=== PATIENT | male | born 2000 | race Caucasian/White ===

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

== ENCOUNTER 2021-07-19 15:59 | Emergency (ER) | payer OTHER ==
[~2021-07-19] VITALS: Ht 182 cm; Wt 76.2 kg
[~2021-07-19 15:59] MED LIST changes: +ALPR.25T PO; -ALPR0.254 PO; -RISP0.5T3; +RISP0.5T65
--- NOTE | 2021-07-19 16:41 | ED Cough/URI ---
General Chief Complaint: COVID19 Suspect/Confirmed Stated Complaint: FEVER/VOMITING Source: patient Exam Limitations: no limitations History of Present Illness Date Seen by Provider: Jul 19, 2021 Time Seen by Provider: 16:25 Initial Comments Here with report of continuing fever and nausea with occasional vomiting after eating. He is Covid positive since 07/09/2021. Overall has been doing better but then had fever last night and still has the stomach problems. He is on steroids and has been taken Tylenol and ibuprofen. He does have ondansetron at home but has not used it in a few days. Worried today because he had return of fever last night and he still has persistent fatigue with some shortness of air. Timing/Duration: changing over time, other (9 days) Severity/Quality: mild, dry cough Prior Episodes/Possible Cause: occasional episodes Modifying Factors: Worse With Activity; Improves With Rest Associated Symptoms: cough, shortness of breath Allergies and Home Medications Allergies Coded Allergies: No Known Drug Allergies (Unverified , 10/27/15) Patient Home Medication List Home Medication List Reviewed: Yes Review of Systems Review of Systems Constitutional: see HPI; No chills; fever, malaise (Fatigue) Respiratory: cough, short of breath (Mild) Gastrointestinal: abdominal pain (Epigastric), nausea, vomiting Genitourinary: no symptoms reported Musculoskeletal: no symptoms reported Skin: no symptoms reported Past Kahcvon-Wpmguu-Ugdlqa Hx Patient Social History Tobacco Use?: No Use of E-Cig and/or Vaping dev: Yes E-Cig or Vaping type used: Nicotine Use of E-Cig and/or Vaping Cedric: Current Everyday User Substance use?: No Alcohol Use?: No Pt feels they are or have been: No Immunizations Up To Date Tetanus Booster (TDap): Less than 5yrs PED Vaccines UTD: Yes Seasonal Allergies Seasonal Allergies: Yes Past Medical History Surgeries: Yes Adenoidectomy, Gallbladder, Tonsillectomy Respiratory: No Cardiac: No Neurological: No Headaches /Migraines Reproductive Disorders: No Gastrointestinal: Yes Gastroesophageal Reflux, Gall Bladder Disease, Irritable Bowel Musculoskeletal: No Endocrine: No Cancer: No Psychosocial: Yes (HX OF SUICIDAL THOUGHTS) Anxiety, Depression Integumentary: No Blood Disorders: No Adverse Reaction/Blood Tranf: No Family Medical History Reviewed Nursing Family Hx No Pertinent Family Hx Physical Exam Vital Signs - First Documented 07/19/21 16:30 Temp 36.7 Pulse 89 Resp 20 B/P (MAP) 125/82 (96) Pulse Ox 96 Capillary Refill : Height: 5'11.00" Weight: 176lbs. 4.0oz. [id number]; 27.00 BMI Method:Stated General Appearance: WD/WN, no apparent distress HEENT: PERRL/EOMI, pharyngeal erythema Neck: non-tender, full range of motion, supple, normal inspection Respiratory: lungs clear, normal breath sounds Cardiovascular: regular rate, rhythm, no murmur Gastrointestinal: normal bowel sounds, non tender, soft Extremities: non-tender, normal inspection Neurologic/Psychiatric: alert, oriented x 3 Skin: normal color, warm/dry Progress/Results/Core Measures Suspected Sepsis SIRS Temperature: Pulse: Respiratory Rate: Blood Pressure / Mean: Results/Orders My Orders Orders - ANTHONY MUNSON MD Chest 1 View, Ap/Pa Only (07/19/21 16:34) Vital Signs/I&O 07/19/21 16:30 Temp 36.7 Pulse 89 Resp 20 B/P (MAP) 125/82 (96) Pulse Ox 96 Capillary Refill : Progress Note : Progress Note Seen and evaluated. Initially difficult to determine what the main complaint was and then turns out his main concern is related to the stomach upset and difficulty with eating. He is mildly short of breath. He is day 8/9 of Covid infection. He is finishing his last dose of steroid tomorrow. We will go ahead and check chest x-ray. I did discuss with him about adding famotidine to his regimen to reduce acid since he has been on steroids and ibuprofen and I think this will help greatly. He was appreciative of that. If chest x-ray is okay, we will discharge home. Monitor patient. 1705: Chest x-ray does show few small infiltrates but otherwise no acute findings. Overall he is much better now. All questions answered. Discharged home with return precautions. Patient verbalized understanding instructions and agreement with plan. Diagnostic Imaging Diagonstic Imaging: Xray Plain Films/CT/US/NM/MRI: chest Comments Few patchy infiltrates bilateral. See full report for details. Reviewed: Reviewed by Me Departure Impression Primary Impression: COVID-19 virus infection Disposition: HOME, SELF-CARE Condition: Stable Departure-Patient Inst. Decision time for Depature: 16:39 Referrals: HECTOR JENKINS MD (PCP/Family) Primary Care Physician Patient Instructions: COVID-19 (DC) Add. Discharge Instructions: All discharge instructions reviewed with patient and/or family. Voiced understanding. Continue to drink plenty of fluids and get plenty of rest. Eat a light diet and then advance as tolerated. You may take [id number] Pepcid or the generic famotidine, 20 mg twice daily for the next 3 or 4 days and then daily thereafter for the next week or 2 to reduce stomach upset. You may stop after that. Continue Tylenol first for fever or pain and then use ibuprofen only for breakthrough symptoms of fever or pain. Follow with your doctor in a few days for recheck as needed. Return for worse pain, fever, vomiting, weakness, breathing problems or other concerns as needed. ANTHONY MUNSON MD Jul 19, 2021 16:41
--- NOTE | 2021-07-19 17:03 | Diagnostic Imaging Report ---
INDICATION: Fevers with nausea and vomiting. TIME OF EXAM: 4:55 PM No prior studies are available for comparison. Heart size normal. There are patchy airspace infiltrates in the right upper and right lower lobe. There is patchy infiltrate left base as well. Features are consistent with pneumonia. No effusion or pneumothorax is identified. IMPRESSION: Bilateral airspace pulmonary infiltrates consistent with pneumonia. Dictated by: Dictated on workstation # [id number]
[2021-07-19 17:20] VITALS: BP 123/80
== END 2021-07-19 17:20 | disposition home or self-care (01) ==
LOC: EDUNIT# 15:59 → ER 16:01
DX: U07.1 COVID-19 (principal); F17.290 Nicotine dependence, other tobacco product, uncomplicated
CPT/HCPCS: 71045

== ENCOUNTER 2021-10-10 03:33 | Emergency (ER) | payer OTHER ==
[2021-10-10] MEDS ORDERED: ACETAMINOPHEN 500 MG TAB (TYLENOL) PO ONE (04:00)
[2021-10-10] MEDS ORDERED: methylPREDNISolone 125 MG (Solu-MEDROL) VIAL IM ONE (04:00)
[2021-10-10] MEDS ORDERED: PROMETHAZINE INJ 25 MG/ML (PHENERGAN) AMP IM ONE (04:00)
[2021-10-10] MEDS ORDERED: diphenhydrAMINE 25 MG TAB (BENADRYL) PO ONE (04:00)
[2021-10-10] MEDS ORDERED: KETOROLAC 60 MG/2 ML VIAL IM ONE (04:00)
--- NOTE | 2021-10-10 04:04 | ED Headache ---
General Stated Complaint: MIGRAINE Source: patient Exam Limitations: no limitations History of Present Illness Date Seen by Provider: Oct 10, 2021 Time Seen by Provider: 03:44 Initial Comments Patient presents the ER by private conveyance with significant other and chief complaint of severe migraine, 7 out of 10 off and on for the past 3 days. He has a history of chronic migraines and uses Botox and followed by Dr. Sol, neurology and Dr. Kim primary care. No fevers chills earaches congestion. He recently got over the influenza. He does not take triptan's. He has been using Tylenol and Motrin. Is been greater than 6 hours since last dose Tylenol. He had 40 mg of Motrin approximately 2-1/2 hours ago. He has a occasionally some nausea but no vomiting. No diarrhea or rash. No visual disturbances. Allergies and Home Medications Allergies Coded Allergies: No Known Drug Allergies (Unverified , 10/27/15) Patient Home Medication List Home Medication List Reviewed: Yes Review of Systems Review of Systems Constitutional: No chills, No diaphoresis Eyes: Denies Blindness, Denies Blurred Vision Ears, Nose, Mouth, Throat: denies ear pain, denies mouth pain Respiratory: No orthopnea, No phlegm, No short of breath Cardiovascular: No chest pain, No edema Gastrointestinal: No abdominal pain, No constipation, No diarrhea; nausea; No vomiting All Other Systems Reviewed Negative Unless Noted: Yes Past Bbbqeii-Vbokcr-Iwesvm Hx Patient Social History Tobacco Use?: No Use of E-Cig and/or Vaping dev: No Immunizations Up To Date Tetanus Booster (TDap): Less than 5yrs PED Vaccines UTD: Yes Seasonal Allergies Seasonal Allergies: Yes Past Medical History Surgeries: Yes Adenoidectomy, Gallbladder, Tonsillectomy Respiratory: No Cardiac: No Neurological: No Headaches /Migraines Reproductive Disorders: No Gastrointestinal: Yes Gastroesophageal Reflux, Gall Bladder Disease, Irritable Bowel Musculoskeletal: No Endocrine: No Cancer: No Psychosocial: Yes (HX OF SUICIDAL THOUGHTS) Anxiety, Depression Integumentary: No Blood Disorders: No Adverse Reaction/Blood Tranf: No Family Medical History No Pertinent Family Hx Physical Exam Vital Signs Vital Signs - First Documented 10/10/21 03:42 Temp 36.2 Pulse 79 Resp 16 B/P (MAP) 132/87 (102) Pulse Ox 98 O2 Delivery Room Air Capillary Refill : Height, Weight, BMI Height: 5'11.00" Weight: 176lbs. 4.0oz. [id number]; 23.00 BMI Method:Stated General Appearance: WD/WN, mild distress HEENT: PERRL/EOMI, normal ENT inspection, TMs normal, pharynx normal Neck: full range of motion, supple, normal inspection Cardiovascular: normal peripheral pulses, regular rate, rhythm Respiratory: no respiratory distress, no accessory muscle use Psychiatric: alert, oriented x 3 Crainal Nerves: normal hearing, normal speech, PERRL Coordination/Gait: normal gait Motor/Sensory: no motor deficit, no sensory deficit Progress/Results/Core Measures Results/Orders My Orders Orders - FILIBERTO DOW Acetaminophen Tablet (Tylenol Tablet) (10/10/21 04:00) Diphenhydramine Tablet (Benadryl Tablet) (10/10/21 04:00) Ketorolac Injection (Toradol Injection) (10/10/21 04:00) Promethazine Injection (Phenergan Injec (10/10/21 04:00) Methylprednisolone Sod Succ (Solu-Medrol (10/10/21 04:00) Vital Signs/I&O 10/10/21 10/10/21 03:42 04:26 Temp 36.2 36.2 Pulse 79 79 Resp 16 16 B/P (MAP) 132/87 (102) 132/87 Pulse Ox 98 98 O2 Delivery Room Air Room Air Progress Progress Note : Time: 04:01 Progress Note Benadryl, Toradol, Tylenol, Phenergan IM. We will give some Solu-Medrol to help with his recurrent migraine. He does not appear to be acutely ill. Follow-up with primary care as necessary. Departure Impression Primary Impression: Migraine Qualified Codes: G43.001 - Migraine without aura, not intractable, with status migrainosus Disposition: HOME, SELF-CARE Condition: Stable Departure-Patient Inst. Decision time for Depature: 04:04 Referrals: HECTOR KIM MD (PCP/Family) Primary Care Physician Patient Instructions: Migraines (DC) Add. Discharge Instructions: Go home and get some sleep. Drink plenty of fluids. Follow-up with primary care if symptoms or not abating. Return to the ER for severe, intractable pain, intractable vomiting, fever or other worrisome symptom such as confusion, weakness, loss of control of bowel or bladder, etc. Work/School Note: Work Release Form Date Seen in the Emergency Department: Juan M 2021 Return to Work: Oct 13, 2021 Restrictions: No Restrictions FILIBERTO DOW Oct 10, 2021 04:04
[2021-10-10 04:26] VITALS: BP 132/87
== END 2021-10-10 04:27 | disposition home or self-care (01) ==
LOC: EDUNIT# 03:33 → ER 03:36
DX: G43.001 Migraine without aura, not intractable, with status migrainosus (principal)
CPT/HCPCS: 99284

== ENCOUNTER 2021-10-16 21:07 | Emergency (ER) | payer OTHER ==
[~2021-10-16] VITALS: Ht 180.3 cm; Wt 68.0 kg
--- NOTE | 2021-10-16 23:32 | ED GI ---
General Chief Complaint: Abdominal/GI Problems Stated Complaint: VOMITING Nursing Triage Note: pt ambulatory to room with visitor. pt states he has had sharp, burning, 6/10 pain in his middle abdomen with nausea and vomiting Source of Information: Patient Exam Limitations: No Limitations (GOVIND CANNON STUDENT) History of Present Illness Date Seen by Provider: Oct 16, 2021 Time Seen by Provider: 23:15 Initial Comments Patient is a 21 year old male who presents to the ED with complaints of intractable nausea, vomiting, and abdominal pain. Reports that he's had 5 episodes of voluminous emesis since 2pm today. Reports not being able to keep any food or drink down. States these episodes occur about once per month over the last 6-7 months. Reports taking some pepto bismol and zofran today with no effect. States the pain is periumbilical and is a 6/10 currently. Describes the pain as stabbing and burning around the umbilicus and radiates bilaterally across his abdomen. Reports walking and wretching worsen the pain. Lying still improves the pain. Reports he was seen in Dr. Kim's office the other day and was found to be iron deficient and had orthostatic hypotension. Was seen a few years ago by a GI specialist and had EGD/colonoscopy done at that time which was unrevealing. Does not take any acid reducers at home normally. Denies chest pain, SOB, headache, dysuria, body aches, and dizziness. Reports some mild joint aches and diarrhea which is at his baseline per usual. Timing/Duration: 12 Hours Severity/Quality: Severe, Burning, Sharp, Stabbing Location: Periumbilical Radiation: Periumbilical Activities at Onset: None Modifying Factors: Improves With Coughing, Improves With Movement, Improves With Palpation Associated Symptoms: No Chest Pain, No Fever/Chills; Heartburn, Nausea/Vomiting; No Shortness of Air (GOVIND CANNON MED STUDENT) Initial Comments I have reviewed and agree with the medical student's documentation. I have also performed HPI, ROS and physical exam and agree with documentation. (VANESSA PAYNE MD) Allergies and Home Medications Allergies Coded Allergies: No Known Drug Allergies (Unverified , 10/27/15) Patient Home Medication List Home Medication List Reviewed: Yes (VANESSA PAYNE MD) Dicyclomine HCl (Dicyclomine HCl) 20 Mg Tablet, 20 MG PO Q6H PRN for abdominal cramping Prescribed by: VANESSA PAYNE on 10/17/21103 Promethazine HCl (Promethazine Tablet) 25 Mg Tablet, 25 MG PO Q6H PRN for NAUSEA/VOMITING Prescribed by: VANESSA PAYNE on 10/17/21103 Discontinued Medications Dicyclomine HCl (Dicyclomine HCl) 20 Mg Tablet, 20 MG PO Q6H PRN for abdominal cramping Prescribed by: VANESSA PAYNE on 10/17/2145 Promethazine HCl (Promethazine Tablet) 25 Mg Tablet, 25 MG PO Q6H PRN for NAUSEA/VOMITING Prescribed by: VANESSA PAYNE on 10/17/2145 Review of Systems Review of Systems Constitutional: no symptoms reported; No chills, No diaphoresis, No fever EENTM: No Symptoms Reported; No Blurred Vision, No Double Vision Respiratory: No Symptoms Reported; Denies Cough, Denies Shortness of Air Cardiovascular: No Symptoms Reported; Denies Chest Pain, Denies Edema, Denies Irregular Heart Rate, Denies Lightheadedness Gastrointestinal: See HPI, Abdominal Pain; Denies Constipated; Diarrhea, Nausea, Vomiting Genitourinary: Denies Burning, Denies Discharge, Denies Drainage Musculoskeletal: no symptoms reported; No back pain; joint pain; No joint swelling Skin: no symptoms reported; No change in color, No change in hair/nails Psychiatric/Neurological: No Symptoms Reported; Denies Anxiety, Denies Depress ed Endocrine: No Symptoms Reported; Denies Excessive Sweating, Denies Flushing Hematologic/Lymphatic: Anemia (Iron deficient per recent doctor office visit); Denies Easy Bleeding, Denies Easy Bruising (GOVIND CANNON STUDENT) All Other Systems Reviewed Negative Unless Noted: Yes (GOVIND CANNON STUDENT) Past Romisiy-Palgyi-Ezeogq Hx Patient Social History Tobacco Use?: No Smoking Status: Never a Smoker Smokeless Tobacco Frequency: Never a User Use of E-Cig and/or Vaping dev: Yes E-Cig or Vaping type used: Nicotine Use of E-Cig and/or Vaping Cedric: Current Everyday User Substance use?: No Alcohol Use?: Yes Alcohol Frequency: Once in a while (PATI CANNONDecalog STUDENT) Immunizations Up To Date Tetanus Booster (TDap): Less than 5yrs PED Vaccines UTD: Yes Influenza Vaccine Up-to-Date: No; Not Current (PATI CANNONDecalog STUDENT) Seasonal Allergies Seasonal Allergies: Yes (PATI CANNONDecalog STUDENT) Past Medical History Surgeries: Yes Adenoidectomy, Appendectomy, Gallbladder, Tonsillectomy Respiratory: No Cardiac: No Neurological: Yes Headaches /Migraines Reproductive Disorders: No Genitourinary: No Gastrointestinal: Yes Gastroesophageal Reflux, Gall Bladder Disease, Irritable Bowel Musculoskeletal: No Endocrine: No HEENT: No Loss of Vision: Denies Hearing Impairment: Denies Cancer: No Psychosocial: Yes (HX OF SUICIDAL THOUGHTS) Anxiety, Depression Integumentary: No Blood Disorders: No Adverse Reaction/Blood Tranf: No (PATI CANNONDecalog STUDENT) Family Medical History No Pertinent Family Hx (PATI CANNONDecalog STUDENT) Physical Exam Vital Signs Vital Signs - First Documented 10/16/21 22:50 Temp 37.0 Pulse 83 Resp 14 B/P (MAP) 115/81 (92) Pulse Ox 97 (VANESSA PAYNE MD) Vital Signs Capillary Refill : (PATI CANNONDecalog STUDENT) Height/Weight/BMI Height: 5'11.00" Weight: 176lbs. 4.0oz. 79.168678ab; 20.00 BMI Method:Stated General Appearance: WD/WN, no apparent distress HEENT: PERRL/EOMI, pharynx normal Neck: full range of motion, normal inspection Respiratory: lungs clear, normal breath sounds, no respiratory distress Cardiovascular: normal peripheral pulses, regular rate, rhythm, no edema Peripheral Pulses: 2+ Radial Pulses (R), 2+ Radial Pulses (L) Gastrointestinal: soft; No distended; tenderness (periumbilical across lower abdomen bilaterally) Rectal: deferred Extremities: normal range of motion, normal inspection, no pedal edema, no calf tenderness Back: normal inspection, no vertebral tenderness Neurologic/Psychiatric: no motor/sensory deficits, alert, normal mood/affect, oriented x 3 Skin: normal color, warm/dry Lymphatic: no adenopathy (Head and Neck) (PATI CANNONKE MED STUDENT) General Appearance: WD/WN, no apparent distress HEENT: PERRL/EOMI, pharynx normal, other (moist mucous membranes) Respiratory: lungs clear, normal breath sounds, no respiratory distress Cardiovascular: regular rate, rhythm Gastrointestinal: normal bowel sounds (slightly hyperactive), non tender ((minimal tenderness)), soft Extremities: normal range of motion, normal inspection, no pedal edema, no calf tenderness Neurologic/Psychiatric: alert, normal mood/affect, oriented x 3 Skin: normal color, warm/dry (VANESSA PAYNE MD) Progress/Results/Core Measures Results/Orders Lab Results Laboratory Tests Test 10/16/21 23:43 10/17/21 00:18 Range/Units White Blood Count 19.0 H 4.3-11.0 10^3/uL Red Blood Count 4.86 4.30-5.52 10^6/uL Hemoglobin 14.3 13.3-17.7 g/dL Hematocrit 41 40-54 % Mean Corpuscular Volume 85 80-99 fL Mean Corpuscular Hemoglobin 29 25-34 pg Mean Corpuscular Hemoglobin Concent 35 32-36 g/dL Red Cell Distribution Width 11.7 10.0-14.5 % Platelet Count 357 130-400 10^3/uL Mean Platelet Volume 10.1 9.0-12.2 fL Immature Granulocyte % (Auto) 0 % Neutrophils (%) (Auto) 86 H 42-75 % Lymphocytes (%) (Auto) 7 L 12-44 % Monocytes (%) (Auto) 6 0-12 % Eosinophils (%) (Auto) 0 0-10 % Basophils (%) (Auto) 0 0-10 % Neutrophils # (Auto) 16.3 H 1.8-7.8 10^3/uL Lymphocytes # (Auto) 1.4 1.0-4.0 10^3/uL Monocytes # (Auto) 1.1 H 0.0-1.0 10^3/uL Eosinophils # (Auto) 0.1 0.0-0.3 10^3/uL Basophils # (Auto) 0.0 0.0-0.1 10^3/uL Immature Granulocyte # (Auto) 0.1 0.0-0.1 10^3/uL Neutrophils % (Manual) 88 % Lymphocytes % (Manual) 9 % Monocytes % (Manual) 3 % Blood Morphology Comment NORMAL Sodium Level 141 135-145 MMOL/L Potassium Level 3.6 3.6-5.0 MMOL/L Chloride Level 108 H 98-107 MMOL/L Carbon Dioxide Level 20 L 21-32 MMOL/L Anion Gap 13 5-14 MMOL/L Blood Urea Nitrogen 13 7-18 MG/DL Creatinine 0.80 0.60-1.30 MG/DL Estimat Glomerular Filtration Rate 129 BUN/Creatinine Ratio 16 Glucose Level 94 70-105 MG/DL Calcium Level 9.4 8.5-10.1 MG/DL Corrected Calcium 9.2 8.5-10.1 MG/DL Total Bilirubin 0.9 0.1-1.0 MG/DL Aspartate Amino Transf (AST/SGOT) 14 5-34 U/L Alanine Aminotransferase (ALT/SGPT) 14 0-55 U/L Alkaline Phosphatase 44 40-136 U/L Total Protein 6.9 6.4-8.2 GM/DL Albumin 4.3 3.2-4.5 GM/DL Lipase 23 8-78 U/L Urine Opiates Screen NEGATIVE NEGATIVE Urine Oxycodone Screen NEGATIVE NEGATIVE Urine Methadone Screen NEGATIVE NEGATIVE Urine Propoxyphene Screen NEGATIVE NEGATIVE Urine Barbiturates Screen NEGATIVE NEGATIVE Ur Tricyclic Antidepressants Screen NEGATIVE NEGATIVE Urine Phencyclidine Screen NEGATIVE NEGATIVE Urine Amphetamines Screen NEGATIVE NEGATIVE Urine Methamphetamines Screen NEGATIVE NEGATIVE Urine Benzodiazepines Screen NEGATIVE NEGATIVE Urine Cocaine Screen NEGATIVE NEGATIVE Urine Cannabinoids Screen POSITIVE H NEGATIVE (VANESSA PAYNE MD) My Orders Orders - VANESSA PAYNE MD Ed Iv/Invasive Line Start (10/16/21 23:35) Cbc With Automated Diff (10/16/21 23:35) Comprehensive Metabolic Panel (10/16/21 23:35) Lipase (10/16/21 23:35) Lactated Ringers (Lr 1000 Ml Iv Solution (10/16/21 23:45) Promethazine Injection (Phenergan Injec (10/16/21 23:45) Pantoprazole Injection (Protonix Injecti (10/16/21 23:45) Drug Screen Stat (Urine) (10/16/21 23:36) Manual Differential (10/16/21 23:43) (VANESSA PAYNE MD) Medications Given in ED (VANESSA PAYNE MD) Vital Signs/I&O 10/16/21 10/17/21 22:50 01:00 Temp 37.0 Pulse 83 77 Resp 14 14 B/P (MAP) 115/81 (92) 116/71 Pulse Ox 97 98 (VNAESSA PAYNE MD) Blood Pressure Mean: 92 Progress Progress Note : Time: 00:41 Progress Note re-evaluated. feeling much better. He does have a fairly significant leukocytosis, however, no point tenderness to the abdomen. No concern for acute pancreatitis. GB and appy are gone. No concern for SBO. Urine drug screen is pending. [place] home with phenergan and bentyl. He has follow up scheduled with Dr Karimi in October. Return precautions advised. (he was noted to be positive for THC, despite adamantly denying that he used THC. Suspect there may be some aspect of THC hyperemesis syndrome contributing to his condition) (VANESSA PAYNE MD) Departure Impression Primary Impression: Acute nausea with nonbilious vomiting Additional Impression: Abdominal pain Qualified Codes: R10.84 - Generalized abdominal pain Disposition: HOME, SELF-CARE Condition: Improved Departure-Patient Inst. Decision time for Depature: 00:43 (VANESSA PAYNE MD) Referrals: HECTOR KIM MD (PCP/Family) Primary Care Physician Patient Instructions: Nausea and Vomiting, Adult ED Add. Discharge Instructions: Please follow a clear liquid diet over the next 12 to 24 hours and slowly advance to solid foods as tolerated. Phenergan tablets, 25 mg every 6 hours as needed for nausea. This medication can make you sleepy, do not drive and take this medication. Dicyclomine/Bentyl 20 mg 30 minutes before eating every 6 hours and once at bedtime to help with abdominal cramping/pain. If you develop a fever with worsening vomiting, bloody stools or worsening pain please come back to the emergency department for reevaluation. Please keep your follow-up appointment with your GI doctor scheduled in October. Scripts Promethazine HCl (Promethazine Tablet) 25 Mg Tablet 25 MG PO Q6H PRN for NAUSEA/VOMITING, #15 TAB Prov: VANESSA PAYNE MD 10/17/21 Dicyclomine HCl (Dicyclomine HCl) 20 Mg Tablet 20 MG PO Q6H PRN for abdominal cramping, #60 TAB take 30 minutes before meals and at bedtime for abdominal cramping Prov: VANESSA PAYNE MD 10/17/21 Verification and Attestation of Medical Student E/M Service A medical student performed and documented this service in my presence. I reviewed and verified all information documented by the medical student and made modifications to such information, when appropriate. I personally performed the physical exam and medical decision making. Vanessa Payne, Oct 19, 2021,06:25 (VANESSA PAYNE MD) Copy Copies To 1: HECTOR KIM MD, [employer] MED STUDENT Oct 16, 2021 23:32 VANESSA PAYNE MD Oct 17, 2021 00:45
[2021-10-16] MEDS ORDERED: LACTATED RINGERS 1,000 ML IV SCH (23:45)
[2021-10-16] MEDS ORDERED: PROMETHAZINE INJ 25 MG/ML (PHENERGAN) AMP IVP ONE (23:45)
[2021-10-16] MEDS ORDERED: PANTOPRAZOLE 40 MG (PROTONIX) VIAL IV ONE (23:45)
[2021-10-16 23:57] LABS: BASOPHILS % (AUTO) 0 % (0-10); EOSINOPHILS # (AUTO) 0.1 10^3/uL (0.0-0.3); EOSINOPHILS % (AUTO) 0 % (0-10); HEMATOCRIT 41 % (40-54); HEMOGLOBIN 14.3 g/dL (13.3-17.7); LYMPHOCYTES # (AUTO) 1.4 10^3/uL (1.0-4.0); LYMPHOCYTES % (AUTO) 7 % (12-44); MEAN CORPUSCULAR HEMOGLOBIN 29 pg (25-34); MEAN CORPUSCULAR HGB CONC 35 g/dL (32-36); MEAN CORPUSCULAR VOLUME 85 fL (80-99); MEAN PLATELET VOLUME 10.1 fL (9.0-12.2); MONOCYTES # (AUTO) 1.1 10^3/uL (0.0-1.0); MONOCYTES % (AUTO) 6 % (0-12); NEUTROPHILS # (AUTO) 16.3 10^3/uL (1.8-7.8); NEUTROPHILS % (AUTO) 86 % (42-75); PLATELET COUNT 357 10^3/uL (130-400)
[2021-10-17 00:18] LABS: ALBUMIN 4.3 GM/DL (3.2-4.5); BILIRUBIN,TOTAL 0.9 MG/DL (0.1-1.0); CALCIUM 9.4 MG/DL (8.5-10.1); CREATININE SERUM 0.8 MG/DL (0.60-1.30); POTASSIUM 3.6 MMOL/L (3.6-5.0); TOTAL PROTEIN 6.9 GM/DL (6.4-8.2)
[2021-10-17 00:39] LABS: LYMPHOCYTES % (MANUAL) 9 %; MONOCYTES % (MANUAL) 3 %; NEUTROPHILS % (MANUAL) 88 %; RBC MORPH NORMAL
[2021-10-17 00:41] LABS: AMPHETAMINE SCREEN, URINE NEGATIVE (NEGATIVE); BARBITURATE SCREEN URINE NEGATIVE (NEGATIVE); BENZODIAZEPINES SCREEN URINE NEGATIVE (NEGATIVE); CANNABINOID SCREEN, URINE POSITIVE (NEGATIVE); COCAINE SCREEN URINE NEGATIVE (NEGATIVE); METHADONE STAT NEGATIVE (NEGATIVE); METHAMPHETAMINE SCREEN URINE S NEGATIVE (NEGATIVE); OPIATE SCREEN URINE NEGATIVE (NEGATIVE); OXYCODONE STAT NEGATIVE (NEGATIVE); PROPOXYPHENE STAT NEGATIVE (NEGATIVE); TRICYCLIC ANTIDEPRESSANTS SCRE NEGATIVE (NEGATIVE)
[2021-10-17] MEDS ORDERED: PROM25TA14 PO ×2 (00:46→01:04)
[2021-10-17] MEDS ORDERED: DICY20TA PO ×2 (00:46→01:04)
[2021-10-17 01:00] VITALS: BP 116/71
== END 2021-10-17 01:02 | disposition home or self-care (01) ==
LOC: EDUNIT# 21:07 → ER 21:09
DX: R11.2 Nausea with vomiting, unspecified (principal); R10.32 Left lower quadrant pain; R10.31 Right lower quadrant pain; F17.290 Nicotine dependence, other tobacco product, uncomplicated
CPT/HCPCS: 36415; 80053; 80306; 83690; 85007; 85027

== ENCOUNTER 2021-12-26 06:54 | Emergency (ER) | payer OTHER ==
[~2021-12-26] VITALS: Ht 180 cm; Wt 66.0 kg
[~2021-12-26 06:54] MED LIST changes: +BUPR-105 PO; -BUPR150T14 PO; +DICY20TA PO; +PROM25TA14 PO
[2021-12-26] MEDS ORDERED: diphenhydrAMINE 25 MG TAB (BENADRYL) PO ONE (07:15)
[2021-12-26] MEDS ORDERED: DROPERIDOL 5 MG/2 ML (INAPSINE) ED ONLY! IM ONE (07:15)
--- NOTE | 2021-12-26 07:19 | ED GI ---
General Chief Complaint: Abdominal/GI Problems Stated Complaint: NAUSEA,VOMITING Source of Information: Patient Exam Limitations: No Limitations History of Present Illness Date Seen by Provider: December 26, 2021 Time Seen by Provider: 06:57 Initial Comments 21-year-old male with past medical history of chronic nausea and vomiting for the better part of a decade coming in due to nausea and vomiting. This most recent episode started yesterday, last had an episode of nonbilious and nonbloody vomiting around 2 AM this morning. Has not kept any medicine down. Tried Zofran and then Phenergan. He has been dealing with this roughly 3 times a week for many years. He follows a GI specialist has had multiple scopes, had his gallbladder removed, appendix removed, and so far they do not have a unifying diagnosis. He says he does not smoke marijuana or use any type of drugs. He does vape nicotine. Denies any significant abdominal pain, fever, chest pain, shortness of breath, cough, weakness, numbness, diarrhea, or any other concerns. Allergies and Home Medications Allergies Coded Allergies: No Known Drug Allergies (Unverified , 10/27/15) Patient Home Medication List Home Medication List Reviewed: Yes Dicyclomine HCl (Dicyclomine HCl) 20 Mg Tablet, 20 MG PO Q6H PRN for abdominal cramping Prescribed by: VANESSA PAYNE on 10/17/21103 Promethazine HCl (Promethazine Tablet) 25 Mg Tablet, 25 MG PO Q6H PRN for NAUSEA/VOMITING Prescribed by: VANESSA PAYNE on 10/17/21103 Review of Systems Review of Systems Constitutional: No chills, No fever EENTM: No Blurred Vision Respiratory: Denies Cough Cardiovascular: Denies Chest Pain Gastrointestinal: Denies Abdominal Pain; Nausea, Vomiting Genitourinary: No Symptoms Reported Musculoskeletal: no symptoms reported Skin: no symptoms reported Psychiatric/Neurological: No Symptoms Reported Endocrine: No Symptoms Reported Hematologic/Lymphatic: No Symptoms Reported All Other Systems Reviewed Negative Unless Noted: Yes Past Tpsvjmb-Nqvmyi-Fvnjqx Hx Patient Social History Tobacco Use?: No Use of E-Cig and/or Vaping dev: Yes E-Cig or Vaping type used: Nicotine Substance use?: No Alcohol Use?: No Immunizations Up To Date Tetanus Booster (TDap): Less than 5yrs PED Vaccines UTD: Yes Seasonal Allergies Seasonal Allergies: Yes Past Medical History Surgeries: Yes Adenoidectomy, Appendectomy, Gallbladder, Tonsillectomy Respiratory: No Cardiac: No Neurological: Yes Headaches /Migraines Reproductive Disorders: No Genitourinary: No Gastrointestinal: Yes Gastroesophageal Reflux, Gall Bladder Disease, Irritable Bowel Musculoskeletal: No Endocrine: No HEENT: No Loss of Vision: Denies Hearing Impairment: Denies Cancer: No Psychosocial: Yes (HX OF SUICIDAL THOUGHTS) Anxiety, Depression Integumentary: No Blood Disorders: No Adverse Reaction/Blood Tranf: No Family Medical History No Pertinent Family Hx Physical Exam Vital Signs Vital Signs - First Documented 12/26/21 07:05 Temp 35.0 Pulse 72 Resp 18 B/P (MAP) 126/82 (97) Pulse Ox 99 O2 Delivery Room Air Capillary Refill : Height/Weight/BMI Height: 5'11.00" Weight: 176lbs. 4.0oz. 79.060345rj; 20.00 BMI Method:Stated General Appearance: WD/WN, no apparent distress HEENT: PERRL/EOMI, normal ENT inspection, pharynx normal Neck: non-tender, full range of motion, supple, normal inspection Respiratory: chest non-tender, lungs clear, normal breath sounds, no respiratory distress, no accessory muscle use Cardiovascular: regular rate, rhythm, no edema, no murmur Gastrointestinal: normal bowel sounds, non tender, soft; No distended, No guarding, No rebound Extremities: normal range of motion, non-tender, normal inspection, no pedal edema, no calf tenderness, normal capillary refill Back: normal inspection, no CVA tenderness, no vertebral tenderness Neurologic/Psychiatric: no motor/sensory deficits, alert, normal mood/affect Skin: normal color, warm/dry Lymphatic: no adenopathy Progress/Results/Core Measures Results/Orders My Orders Orders - BOWEN TORRES MD Droperidol Inj (Ed Only) (Inapsine Inj ( (12/26/21 07:15) Diphenhydramine Tablet (Benadryl Tablet) (12/26/21 07:15) Medications Given in ED Current Medications Medications Dose Ordered Sig/Zehra Route Start Time Stop Time Status Last Admin Dose Admin Diphenhydramine HCl 25 mg ONCE ONCE PO 12/26/21 07:15 12/26/21 07:17 DC 12/26/21 07:27 25 MG Droperidol 2.5 mg ONCE ONCE IM 12/26/21 07:15 12/26/21 07:17 DC 12/26/21 07:27 2.5 MG Vital Signs/I&O 12/26/21 07:05 Temp 35.0 Pulse 72 Resp 18 B/P (MAP) 126/82 (97) Pulse Ox 99 O2 Delivery Room Air Progress Progress Note : Progress Note 21-year-old male with chronic vomiting coming in due to vomiting. ABCs were intact and vitals are stable on presentation. Physical exam reassuring including a soft and nontender abdomen. He was given IM droperidol given his cyclical nature of his vomiting. This improves his symptoms. He was feeling much better and wanted to go home after. Departure Impression Primary Impression: Cyclical vomiting Disposition: 01 HOME, SELF-CARE Condition: Stable Departure-Patient Inst. Decision time for Depature: 08:27 Referrals: HECTOR JENKINS MD (PCP/Family) Primary Care Physician Patient Instructions: Nausea and Vomiting, Adult ED Add. Discharge Instructions: Follow up with your GI doctor as scheduled. Take the nausea meds as needed. Drink fluids such as gatorade. Scripts Promethazine HCl (Promethazine Tablet) 25 Mg Tablet 25 MG PO Q6H PRN for NAUSEA/VOMITING for 5 Days, #20 TAB Prov: BOWEN TORRES MD 12/26/21 Work/School Note: Work Release Form Date Seen in the Emergency Department: December 26, 2021 Return to Work: December 28, 2021 Restrictions: No Restrictions BOWEN TORRES MD December 26, 2021 07:19
[2021-12-26] MEDS ORDERED: PROM25TA14 PO (08:29)
[2021-12-26 08:37] VITALS: BP 119/73
== END 2021-12-26 08:37 | disposition home or self-care (01) ==
LOC: EDUNIT# 06:54 → ER 06:58
DX: R11.15 Cyclical vomiting syndrome unrelated to migraine (principal); F17.290 Nicotine dependence, other tobacco product, uncomplicated
CPT/HCPCS: 99283

== ENCOUNTER 2022-05-15 03:20 | Emergency (ER) | payer OTHER ==
[~2022-05-15] VITALS: Ht 180 cm; Wt 66.0 kg
[2022-05-15] MEDS ORDERED: MIRT-68 (03:29)
[2022-05-15] MEDS ORDERED: METO5TAB2 (03:29)
[2022-05-15] MEDS ORDERED: OMEP20CA18 (03:29)
[2022-05-15] MEDS ORDERED: LURA20TA (03:29)
[2022-05-15] MEDS ORDERED: UBRO100T (03:29)
--- NOTE | 2022-05-15 03:43 | ED Headache ---
General Chief Complaint: Head/Cervical Problems Stated Complaint: MIGRAINE Nursing Triage Note: C/O MIGRAINE HEADACHE X2-3 DAYS WORSE X2HRS. REPORTS SIMILIAR TO PREVIOUS HEADACHES. Source: patient, family (mother) Exam Limitations: no limitations (CHARLETTE FRANKLIN) History of Present Illness Date Seen by Provider: May 15, 2022 Time Seen by Provider: 03:30 Initial Comments This 22 y/o male presents with reported migraine. Patient states the onset of the migraine was yesterday, 05/14. Patient states he has had migraines since age 12 and sees a neurologist in [place], Dr. Sol. Patient reports he is currently receiving botox therapy for his migraines and takes Ubrelvy 100mg. Patient states the pain is worsening. Patient reports he has taken Ubrelvy since onset of the migraine with minimal relief. Patient denies taking other medications to abort the migraine/aid in pain management. Patient states his pain in located behind bilateral eyes, across his forehead, and in bilateral temples. Patient reports associated symptoms of blurry vision in his left eye, photophobia, nausea, and vomiting x1 prior to arrival. Patient states he does not currently feel nauseous. Patient states in the past excedrin has helped with migraine pain. Patient denies chest pain, SOA, abdominal pain, or URI symptoms. Timing/Duration: other (onset yesterday; unsure at what time) Severity/Quality: moderate, other (worsening) Location: frontal, temporal Prior Headaches/Recent Trauma: no recent headache/trauma, frequent headaches, chronic headaches Modifying Factors: worse with exposure to light; improves with medication (Ubrelvy) Associated Symptoms: facial pain, nausea/vomiting, vision changes (blurry vision in left eye) (CHARLETTE FRANKLIN) Allergies and Home Medications Allergies Coded Allergies: No Known Drug Allergies (Unverified , 10/27/15) Patient Home Medication List Home Medication List Reviewed: Yes (CHARLETTE FRANKLIN) Dicyclomine HCl (Dicyclomine HCl) 20 Mg Tablet, 20 MG PO Q6H PRN for abdominal cramping Prescribed by: VANESSA PAYNE on 10/17/21 0104 Lurasidone HCl (Latuda) 20 Mg Tablet, (Reported) Entered as Reported by: GINA MORALES on 10/14/22 0329 Last Action: New Order Metoclopramide HCl (Metoclopramide HCl) 5 Mg Tablet, (Reported) Entered as Reported by: GINA MORALES on 05/15/22328 Last Action: New Order Mirtazapine (Mirtazapine) 15 Mg Tablet, (Reported) Entered as Reported by: GINA MORALES on 05/15/22328 Last Action: New Order Omeprazole (Omeprazole) 20 Mg Capsule., (Reported) Entered as Reported by: GINA MORALES on 05/15/22328 Last Action: New Order Promethazine HCl (Promethazine Tablet) 25 Mg Tablet, 25 MG PO Q6H PRN for NAUSEA/VOMITING Prescribed by: VANESSA PAYNE on 10/17/21 0104 Promethazine HCl (Promethazine Tablet) 25 Mg Tablet, 25 MG PO Q6H PRN for NAUSEA/VOMITING Prescribed by: BOWEN TORRES on 12/26/21 0829 Ubrogepant (Ubrelvy) 100 Mg Tablet, (Reported) Entered as Reported by: GINA MORALES on 05/15/22328 Last Action: New Order Review of Systems Review of Systems Constitutional: no symptoms reported Eyes: Photophobia, Vision Changes (blurry vision in left eye) Ears, Nose, Mouth, Throat: no symptoms reported Respiratory: no symptoms reported Cardiovascular: no symptoms reported Gastrointestinal: nausea, vomiting Genitourinary: no symptoms reported Musculoskeletal: no symptoms reported Skin: no symptoms reported Psychiatric/Neurological: Anxiety, Depressed, Headache (CHARLETTE FRANKLIN) All Other Systems Reviewed Negative Unless Noted: Yes (CHARLETTE FRANKLIN) Past Vktulal-Tvpcsu-Kjjpue Hx Patient Social History Tobacco Use?: No Smoking Status: Former Smoker (quit three years ago) Use of E-Cig and/or Vaping dev: Yes E-Cig or Vaping type used: Nicotine Substance use?: No Alcohol Use?: No Pt feels they are or have been: No (CHARLETTE FRANKLIN) Immunizations Up To Date Tetanus Booster (TDap): Less than 5yrs PED Vaccines UTD: Yes First/Initial COVID19 Vaccinat: na (CHARLETTE FRANKLIN) Seasonal Allergies Seasonal Allergies: Yes (CHARLETTE FRANKLIN) Past Medical History Surgery/Hospitalization HX: GALLBLADDER, APPENDIX, EGD, T/A CYCLIC VOMITTING, HEADACHES/MIGRAINES, GERD, IBS, ANXIETY/DEPRESSION Surgeries: Yes Adenoidectomy, Appendectomy, Gallbladder, Tonsillectomy Respiratory: No Cardiac: No Neurological: Yes Headaches /Migraines Reproductive Disorders: No Genitourinary: No Gastrointestinal: Yes Gastroesophageal Reflux, Gall Bladder Disease, Irritable Bowel Musculoskeletal: No Endocrine: No HEENT: No Loss of Vision: Denies Hearing Impairment: Denies Cancer: No Psychosocial: Yes (HX OF SUICIDAL THOUGHTS) Anxiety, Depression Integumentary: No Blood Disorders: No Adverse Reaction/Blood Tranf: No (CHARLETTE FRANKLIN) Family Medical History No Pertinent Family Hx (CHARLETTE FRANKLIN) Physical Exam Vital Signs Vital Signs - First Documented 05/15/22 03:25 Temp 36.4 Pulse 76 Resp 16 B/P (MAP) 124/82 (96) Pulse Ox 100 O2 Delivery Room Air (RHETT PITT MD) Vital Signs Capillary Refill : Less Than 3 Seconds (CHARLETTE FRANKLIN) Height, Weight, BMI Height: 5'11.00" Weight: 176lbs. 4.0oz. 79.971065lo; 20.00 BMI Method:Stated General Appearance: WD/WN, no apparent distress HEENT: PERRL/EOMI, other (frontal and temporal tenderness with palpation to face/head) Cardiovascular: regular rate, rhythm, no murmur Respiratory: lungs clear, normal breath sounds, no respiratory distress, no accessory muscle use Gastrointestinal: non tender, soft Psychiatric: alert, oriented x 3 Crainal Nerves: normal speech, PERRL Skin: normal color, warm/dry Lymphatic: no adenopathy (CHARLETTE FRANKLIN) Progress/Results/Core Measures Results/Orders My Orders Orders - RHETT PITT MD Acetaminophen Tablet (Tylenol Tablet) (05/15/22 04:15) Ketorolac Injection (Toradol Injection) (05/15/22 04:15) Diphenhydramine Tablet (Benadryl Tablet) (05/15/22 04:15) Methylprednisolone Sod Succ (Solu-Medrol (05/15/22 04:15) Promethazine Injection (Phenergan Injec (05/15/22 04:15) (RHETT PITT MD) Medications Given in ED Current Medications Medications Dose Ordered Sig/Zehra Route Start Time Stop Time Status Last Admin Dose Admin Acetaminophen 1,000 mg ONCE ONCE PO 05/15/22 04:15 05/15/22 04:17 DC 05/15/22 04:22 1,000 MG Diphenhydramine HCl 50 mg ONCE ONCE PO 05/15/22 04:15 05/15/22 04:17 DC 05/15/22 04:21 50 MG Ketorolac Tromethamine 30 mg ONCE ONCE IM 05/15/22 04:15 05/15/22 04:17 DC 05/15/22 04:22 30 MG Methylprednisolone Sodium Succinate 125 mg ONCE ONCE IM 05/15/22 04:15 05/15/22 04:17 DC 05/15/22 04:22 125 MG Promethazine HCl 25 mg ONCE ONCE IM 05/15/22 04:15 05/15/22 04:17 DC 05/15/22 04:22 25 MG (RHETT PITT MD) Vital Signs/I&O 05/15/22 05/15/22 05/15/22 05/15/22 03:25 04:22 04:22 04:45 Temp 36.4 36.4 36.4 Pulse 76 71 Resp 16 16 B/P (MAP) 124/82 (96) 121/80 Pulse Ox 100 99 O2 Delivery Room Air Room Air (RHETT PITT MD) Blood Pressure Mean: 96 Departure Impression Primary Impression: Migraine Qualified Codes: G43.909 - Migraine, unspecified, not intractable, without status migrainosus Disposition: 01 HOME, SELF-CARE Condition: Improved Departure-Patient Inst. Decision time for Depature: 04:35 (RHETT PITT MD) Referrals: HECTOR JENKINS MD (PCP/Family) Primary Care Physician Patient Instructions: Migraines in Adults Add. Discharge Instructions: Drink plenty of clear liquids to stay well-hydrated. Follow medication instructions as previously directed by your physicians. Keep your follow-up with your neurologist. Discuss means of migraine prevention and evaluation of triggers with your primary care provider and neurologist. Part of this evaluation may include checking for thyroid dysfunction, vitamin D deficiency, etc. Return to care if you have worsening symptoms despite following these instructions. All discharge instructions reviewed with patient and/or family. Voiced understanding. Medical Student Attestation and Attending Note: I have personally interviewed and examined this patient along with Christina Franklin, MS 4. I have reviewed student documentation including history, physical, and assessments. I agree with the documentation except where otherwise noted. Exam: General: Alert, oriented, no acute distress, well developed HEENT: Normocephalic and atraumatic, pupils equally round and reactive Heart: Regular rate and rhythm without murmur Lungs: Clear to auscultation bilaterally with normal effort Neuropsych: Alert, oriented, no focal deficits Skin: Warm and dry without rashes Patient states his prior treatment on a previous visit was successful in abortin g the migraine and preventing rebound. That therapy was replicated today with improvement prior to discharge. (RHETT PITT MD) Copy Copies To 1: HECTOR JENKINS MDCHARLETTE May 15, 2022 03:43 RHETT PITT MD May 15, 2022 04:37
[2022-05-15] MEDS ORDERED: PROMETHAZINE INJ 25 MG/ML (PHENERGAN) AMP IM ONE (04:15)
[2022-05-15] MEDS ORDERED: ACETAMINOPHEN 500 MG TAB (TYLENOL) PO ONE (04:15)
[2022-05-15] MEDS ORDERED: diphenhydrAMINE 25 MG TAB (BENADRYL) PO ONE (04:15)
[2022-05-15] MEDS ORDERED: KETOROLAC 30 MG/ML VIAL IM ONE (04:15)
[2022-05-15] MEDS ORDERED: methylPREDNISolone 125 MG (Solu-MEDROL) VIAL IM ONE (04:15)
[2022-05-15 04:45] VITALS: BP 121/80
== END 2022-05-15 04:46 | disposition home or self-care (01) ==
LOC: EDUNIT# 03:20 → ER 03:22
DX: G43.909 Migraine, unspecified, not intractable, without status migrainosus (principal); Z87.891 Personal history of nicotine dependence; Z28.310 Unvaccinated for COVID-19
CPT/HCPCS: 99284